=== PATIENT | female | born 1970 | race Caucasian/White ===

== ENCOUNTER 2018-11-24 07:08 | Day surgery (SDC) | payer BC ==
[2018-11-24] MEDS ORDERED: DIPHENHYDRAMINE 25 MG TAB/CAP ONE (08:10)
[2018-11-24] MEDS ORDERED: NA CHLORIDE 0.9% 250 ML ONE (08:27)
[2018-11-24] MEDS ORDERED: NA CHLORIDE 0.9% 50 ML ONE (10:27)
[2018-11-24 12:27] VITALS: BMI 36.8
[2018-11-24 12:50] VITALS: O2SAT 100
[2018-11-24 12:51] VITALS: BP 109/67; TEMP 97.8
[2018-11-24 14:09] LABS: Hematocrit 24.4 % (36.0-45.0)
== END 2018-11-24 13:41 | disposition home or self-care (01) ==
LOC: DS 07:08
PROVIDERS: ATTEND Clinical Nurse Specialist Women's Health
DX: D64.9 Anemia, unspecified (principal)
CPT/HCPCS: 36415; 86900; 86850; 86901; 85018; 85014; 36430; P9016 ×2; J7030

== ENCOUNTER 2018-12-20 08:44 | Day surgery (SDC) | payer BC ==
[2018-12-20 09:02] LABS: Specific Gravity 1.025 (1.005-1.030)
[2018-12-20] MEDS ORDERED: CEFAZOLIN/SWI 1gm 0 GM/0 ML SYR ONE (09:19)
[2018-12-20] MEDS ORDERED: Ringers Lactate 1,000 ML IV ONE ×2 (09:19→12:42)
[2018-12-20] MEDS ORDERED: CEFAZOLIN/SWI 2gm 2 GM/20 ML SYR ONE (09:19)
[2018-12-20] MEDS ORDERED: LIDOCAINE 1% MPF 5 ML VIAL ONE (10:15)
[2018-12-20] MEDS ORDERED: FENTANYL CITR 100 MCG/2 ML ONE (10:15)
[2018-12-20] MEDS ORDERED: PROPOFOL 200 MG/20 ML VIAL IV ONE (10:15)
[2018-12-20] MEDS ORDERED: MIDAZOLAM HCL 2 MG/2 ML INJ ONE (10:15)
[2018-12-20] MEDS ORDERED: KETOROLAC 30 MG/ML INJ ONE (12:10)
[2018-12-20] MEDS ORDERED: ONDANSETRON 4 MG/2 ML VIAL ONE (12:11)
[2018-12-20] MEDS ORDERED: VASOPRESSIN 20 UNIT/ML VIAL ONE (12:35)
[2018-12-20] MEDS: HYDROMORPHONE HCL 1 MG/ML INJ ONE ×2 (12:50→12:55)
[2018-12-20 13:03] LABS: Absolute Lymphocytes (CBC) 1.9 K/uL (0.7-4.9); Hematocrit 26.2 % (36.0-45.0); Lymphocytes % 35.1 % (15.3-44.8); MPV 8.4 fL (7.6-11.3); RBC Red Blood Cell Count 3.59 M/uL (3.86-4.86)
[2018-12-20 14:04] LABS: Anisocytosis 2+; Blood Morphology Comment NOTED (NOT SEEN); Platelet Estimate ADEQ; Urine White Blood Cell Casts OK
[2018-12-20] MEDS ORDERED: IBUPROFEN 400 MG TAB ONE (14:08)
[2018-12-20] MEDS ORDERED: IBUPROFEN 200 MG TAB PO ONE (14:08)
[2018-12-20 14:30] VITALS: TEMP 98.9
[2018-12-20 15:24] VITALS: BP 120/55; O2SAT 100
--- NOTE | 2018-12-20 23:43 | OP ---
Date of Procedure: 12/20/2018 Surgeon: Sisi Ingram MD Preoperative Diagnoses: Menorrhagia AUB-P/O, anemia. Postoperative Diagnoses: Menorrhagia AUB-P/O, anemia. Procedure Performed: Hysteroscopy, endometrial ablation with NovaSure. Anesthesia: General with LMA. Specimens: No specimens. Complications: No complications. Drains: No drains. Condition: Patient's condition is stable. Findings: Endometrial cavity empty. The length was 5 cm, width 4.1 cm, power was 113 hudson, time 88 seconds for ablation with an uninterrupted cycle, cavity integrity test passed without any problems. There was an excellent global endometrial ablation effect and that was verified after the ablation on hysteroscopy. Description Of Procedure: The patient is a 48-year-old lady with severe anemia, menorrhagia. She carlson d hemoglobin of 6 g and had a transfusion. She had a large polyp, which was resected and biopsied. The pathology was negative for atypia or malignancy. So, we discussed about the options of endometri al ablation versus a depot medroxyprogesterone acetate versus hysterectomy. She had a Depo injection , however, this has not controlled her bleeding, gone on to consent her for an ablation since she cou ld not take too much time off from work as for recovery from hysterectomy. She understood the benefi ts and risks and recurrence rate of bleeding and she was brought to the hospital. A 2 g of Ancef wer e given. The patient was taken back to OR, placed in supine fashion on the operating table, general anesthesia given, placed in a dorsal lithotomy position. Pelvic exam performed. Uterus about 8-week size. Prep x3 with Betadine was done, anterior lip grasped with 2 Allis clamps direct and slimline hysteroscope was used for hysteroscopy. 30-degree lens, normal saline and endometrial cavity was wel l visualized. There were tiny cervical polyps that were removed at the time of the procedure. The e ndometrial cavity was empty, was sounded under direct vision to 8 cm. The cervical length was 3 cm. The cavity length was calculated to be 5, and was entered into the NovaSure generator. Then, the de vice was taken after the scope was removed, deployed into the uterine cavity. The width was assessed at 4.1 cm and the seal was obtained and cavity integrity test was performed. Once this was intact, then went on to the ablation cycle with the power settings as dictated above. There was an uninterru pted cycle, once the ablation cycle was completed, the device was undeployed in the usual fashion and hysteroscopy was performed. The cavity was rinsed out. There was an excellent global effect. Ther e was less than a half a cm area on the fundus in the center of the cavity that did not appear to hav e an excellent ablation effect. However, rest of it had good ablated lining. The scope was removed. All instruments were removed. Instrument, needle, and sponge counts were done correct at the end o f the case. The patient was recovered from anesthesia, she was given 30 mg of Toradol prior to recov anuja. She has a 1-month follow up with me. No further antibiotics. We will check a CBC postop, and we will compare that with the one that I did. If she continues to have worsening anemia, then it david l warrant a workup. GEOFF/JOSÉ LUIS Voice ID: [id number] Report ID: [id number]
== END 2018-12-20 15:26 | disposition home or self-care (01) ==
LOC: OR 08:44
PROVIDERS: ATTEND Obstetrics & Gynecology
PROC: 0U5B8ZZ Destruction of Endometrium, Via Natural or Artificial Opening Endoscopic (ICD-10-PCS; principal; 2018-12-20 10:30)
DX: N92.1 Excessive and frequent menstruation with irregular cycle (principal); D64.9 Anemia, unspecified; F41.9 Anxiety disorder, unspecified; F32.9 Major depressive disorder, single episode, unspecified; F98.8 Other specified behavioral and emotional disorders with onset usually occurring in childhood and adolescence; Z98.51 Tubal ligation status; Z90.49 Acquired absence of other specified parts of digestive tract; Z98.84 Bariatric surgery status; Z80.3 Family history of malignant neoplasm of breast; Z80.0 Family history of malignant neoplasm of digestive organs; Z82.3 Family history of stroke
CPT/HCPCS: 85025; 36415; 81025; 58563; J2704; J2250; J3010; J1170; J0690; J7120 ×2; J2405

== ENCOUNTER 2019-02-05 01:06 | Emergency (ER) | payer BC ==
[2019-02-05] MEDS ORDERED: NA CHLORIDE 0.9% 1,000 ML ONE (01:25)
[2019-02-05] MEDS ORDERED: LORazepam 2 MG/ML VIAL ONE (01:25)
[2019-02-05 01:46] LABS: Absolute Lymphocytes (CBC) 1.7 K/uL (0.7-4.9); Basophils % 1.3 % (0-1.3); Hematocrit 29.5 % (36.0-45.0); Lymphocytes % 33.5 % (15.3-44.8); MPV 8.6 fL (7.6-11.3); RBC Red Blood Cell Count 3.99 M/uL (3.86-4.86)
[2019-02-05 02:13] LABS: Potassium 4.1 mmol/L (3.5-5.1)
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
[2019-02-05 05:08] VITALS: TEMP 97.9
[2019-02-05 05:12] VITALS: BP 113/67; O2SAT 96
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
--- NOTE | 2019-02-06 12:42 | RAD REPORT ---
EXAM DESCRIPTION: RAD - Knee Left 3 View - 02/05/2019 2:35 am CLINICAL HISTORY: Pain COMPARISON: None. TECHNIQUE: AP, lateral and oblique views of the left knee. FINDINGS: No fracture. No bony malalignment. No joint effusion. Normal bone density. Unremarkable so ft tissues. IMPRESSION: 1. Negative left knee. Electronically signed by: Tess Patiño DO 02/05/2019 4:13 AM SERVICENOW ADMINISTRATOR Due to temporary technical issues with the PACS/Fluency reporting system, reports are being signed by the in house radiologist as a courtesy to ensure prompt reporting. The interpreting radiologist is f ully responsible for the content of the report.
--- NOTE | 2019-02-06 12:43 | RAD REPORT ---
EXAM DESCRIPTION: RAD - Ankle Left 3 View - 02/05/2019 2:35 am CLINICAL HISTORY: Pain COMPARISON: None. TECHNIQUE: AP, lateral and oblique views of the left ankle. FINDINGS: There is generalized left ankle soft tissue edema, greater over the lateral malleolus. No fracture. No dislocation. Joint spaces appear normal. No joint effusion. Inferior calcaneal enthesophyte noted. Included midfoot appears normal. IMPRESSION: 1. Left ankle soft tissue edema. No acute bony finding. Electronically signed by: Tess Patiño DO 02/05/2019 4:12 AM PULP COOKER Due to temporary technical issues with the PACS/Fluency reporting system, reports are being signed by the in house radiologist as a courtesy to ensure prompt reporting. The interpreting radiologist is f meganly responsible for the content of the report.
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
== END 2019-02-05 04:59 | disposition home or self-care (01) ==
LOC: ER 01:06
DX: S93.402A Sprain of unspecified ligament of left ankle, initial encounter (principal); S83.8X2A Sprain of other specified parts of left knee, initial encounter; S16.1XXA Strain of muscle, fascia and tendon at neck level, initial encounter; V48.5XXA Car driver injured in noncollision transport accident in traffic accident, initial encounter; Z88.5 Allergy status to narcotic agent
CPT/HCPCS: 96361; 85025; 80048; 36415; 80320; 70450; 72125; 71045; 72170; 73562; 73610; 96374; 99284; J7030